=== PATIENT | male | born 1940 | race Caucasian/White ===

== ENCOUNTER 2021-03-19 20:49 | Emergency (ER) | payer MEDICARE, SELFPAY ==
[2021-03-19] MEDS ORDERED: Boostrix 0.5 ML (Tdap) VIAL ONE (20:54)
[2021-03-19] MEDS ORDERED: ceFAZolin 2 GM/DEX 5% 100 ML BAG ONE (20:54)
[2021-03-19] MEDS ORDERED: Calcium Chloride 1 GM/10 ML Abboject SYRINGE ONE (20:57)
[2021-03-19] MEDS ORDERED: EPINEPHrine 1 MG/10 ML Abboject SYRINGE ONE (20:57)
[2021-03-19] MEDS ORDERED: Sodium Bicarb 50 MEQ/50 ML Abboject 8.4% SYRINGE ONE (20:57)
[2021-03-19] MEDS ORDERED: EPINEPHrine 1 MG/ML VIAL ONE (21:14)
== END 2021-03-19 21:18 | disposition expired ==
LOC: EDBD 20:49 → ERS 20:49
DX: I46.9 Cardiac arrest, cause unspecified (principal); S01.80XA Unspecified open wound of other part of head, initial encounter; R57.1 Hypovolemic shock; I49.9 Cardiac arrhythmia, unspecified
CPT/HCPCS: 36430; 86850; 86900; 86901; 86920; 90715; J0171; P9016; P9048; 92950; 96374; 96375; G0390